=== PATIENT | female | born 1940 | race Caucasian/White ===

== ENCOUNTER 2019-09-24 15:35 | Inpatient (IN) | payer MEDICARE ==
[~2019-09-24] VITALS: Ht 157.5 cm; Wt 61.9 kg
[~2019-09-24 15:35] MED LIST: ADULT LOW DOSE81 MG PO; COREG6.25 MG PO; LISINOPRIL5 MG PO; NORVASC5 MG PO; ONDANSETRON HCL4 M2 PO; PRINIVIL5 MG PO; ZOCOR 20 MG TAB20 M1 PO
[2019-09-24 15:37] VITALS: BP 212/83
[2019-09-24 15:58] LABS: ABSOLUTE LYMPHOCYTES 0.8 thou/uL (0.8-5.3); ABSOLUTE MONOCYTES 0.8 thou/uL (0.0-1.2); ABSOLUTE NEUTROPHILS 3.9 thou/uL (1.6-8.1); BASOPHILS 0.5 %; EOSINOPHILS 0.1 %; HEMATOCRIT 42.4 % (37.0-47.0); HEMOGLOBIN 14.4 gm/dL (12.0-15.0); LYMPHOCYTES 14.8 %; MCH 31.9 pg (26.0-34.0); MCV 93.7 fL (80.0-100.0); MONOCYTES 14.4 %; MPV 7.8 fl. (7.2-11.1); NUCLEATED RBCS 0 /100WBC; PLATELET COUNT* 174 thou/uL (150-400); POLYS 70.2 %; RBC 4.52 mil/uL (4.20-5.00); RDW-CV 13.9 % (10.5-14.5); WBC 5.6 thou/uL (4.0-11.0)
[2019-09-24 16:07] LABS: APTT 29.1 Seconds (25.0-31.3)
[2019-09-24 16:16] LABS: CALCIUM 8.8 mg/dL (8.5-10.1); CREATININE 0.9 mg/dL (0.6-1.3); POTASSIUM 3.2 mmol/L (3.5-5.1)
[2019-09-24 16:21] LABS: ALBUMIN 3.5 g/dL (3.4-5.0); TOTAL BILIRUBIN 0.6 mg/dL (<0.1-1.0); TOTAL PROTEIN 7.3 g/dL (6.4-8.2)
--- NOTE | 2019-09-24 17:03 | NUR ---
REPORT GIVEN TO CARMEN SANTANA WHO IS TO ASSUME PT CARE INPATIENT NURSE.
[2019-09-24 17:04] VITALS: BP 191/67
[2019-09-24 18:20] VITALS: BP 183/84
[2019-09-24] MEDS ORDERED: CARVEDILOL25 MG PO (18:42)
[2019-09-24] MEDS ORDERED: MICROZIDE12.5 MG PO (18:45)
[2019-09-24] MEDS ORDERED: MINOXIDIL2.5 MG PO (18:45)
[2019-09-24] MEDS ORDERED: PRILOSEC OTC20 MG PO (18:46)
[2019-09-24] MEDS ORDERED: HYDRALAZINE 5050 MG PO (18:46)
[2019-09-24] MEDS ORDERED: POTASSIUM99 M1 PO (18:48)
[2019-09-24] MEDS ORDERED: FISH OIL 1,001000 M3 PO (18:48)
[2019-09-24 19:50] VITALS: BP 201/86
[2019-09-24 22:00] VITALS: BP 164/86
[2019-09-25] VITALS (7 sets, daily range): BP systolic 109–176; BP diastolic 51–80
[2019-09-25 04:36] LABS: HEMATOCRIT 42.2 % (37.0-47.0); HEMOGLOBIN 13.9 gm/dL (12.0-15.0); MCHC 32.9 g/dL (28.0-37.0); MCV 94.2 fL (80.0-100.0); MPV 8.1 fl. (7.2-11.1); RBC 4.48 mil/uL (4.20-5.00); RDW-CV 14.2 % (10.5-14.5); WBC 2.7 thou/uL (4.0-11.0)
[2019-09-25 04:56] LABS: CALCIUM 8.5 mg/dL (8.5-10.1); CREATININE 0.8 mg/dL (0.6-1.3); MAGNESIUM 1.8 mg/dL (1.8-2.4); POTASSIUM 3.2 mmol/L (3.5-5.1)
--- NOTE | 2019-09-25 07:55 | NUR ---
PT CARE ASSUMED AT 1930. SAT MAINTAINED IN O2. ALERT AND ORIENTED X4 BUT FORFETFUL AT TIMES. DENIES PAIN. C/O NAUSEA, MEDICATION GIVEN PER EMAR. CALL LIGHT WITHIN REACH AND BED IN LOW POSITION. HOURLY ROUNDING DONE FOR PT SAFETY.
--- NOTE | 2019-09-25 10:15 | EKG ---
[place] [address] ELECTROCARDIOGRAM REPORT Name: Gabriele DE LA ROSA Room: [address] ADM IN M.R.#: [id number] Admission: 09/24/19 Attend Phys: Harshil Chen MD Discharge: Date of : 36 Report #: [id number] THIS REPORT FOR: //name// [facility] ED Test Date: 2019-09-24 Test Time: 16:19:12 Pat Name: Gabriele DE LA ROSA Department: Room: [facility] Gender: F Corrections Officer: : 1940 Requested By: Joselito Stokes Order Number: [id number] MD: Denny Jacobson Measurements Intervals [place] Rate: 77 P: 82 LA: 182 QRS: 65 QRSD: 106 T: 58 QT: 399 QTc: 452 Interpretive Statements Sinus rhythm Consider right atrial enlargement Anteroseptal infarct, age indeterminate Artifact in lead(s) V1,V3 and baseline wander in lead(s) V3 Compared to ECG 03/29/2011 12:29:43 Left ventricular hypertrophy no longer present T-wave abnormality no longer present Possible ischemia no longer present Myocardial infarct finding still present Electronically Signed On 09-25-2019 10:14:54 CHEMICAL PUMPER by Denny Jacobson [email or web address] <ELECTRONICALLY SIGNED> By: Denny Jacobson MD, [facility] 09/25/19 1014 1619 1619 Denny Jacobson MD, [facility] /EPI
--- NOTE | 2019-09-25 18:22 | NUR ---
PT. C/O MORE THIS EVENING ABOUT NAUSEA, SMALL AMOUNT OF BILE EMESIS PRIOR TO ADMINISTRATION OF ZOFRAN. PT. CONTINUES TO SOUND NASAL/CONGEST WITH LOOSE COUGH AND GENERALLY APPEARS LIKE SHE DOES NOT FEEL WELL. 2L NC REMAINS IN PLACE CURRENTLY, WITH PT. REMOVING INTERMIIT, PT. DOES DESTAT WITH ACTIVITY. PT. ENCOURAGED TO WALK TO HELP WITH BOWEL. BP UP THIS EVENING, PM DOSE OF COREG GIVEN, WILL RECHECK. PT. DAUGHTER AT BEDSIDE.
[2019-09-26] VITALS: BP 193/76
[2019-09-26 04:00] VITALS: BP 170/70
--- NOTE | 2019-09-26 07:05 | NUR ---
VSS. SEE MAR. SEE CHARTING. FALL PRECAUTIONS IN PLACE. PROGRESSING TOWARDS GOALS. HOURLY ROUNDING FOR SAFETY.
[2019-09-26 08:00] VITALS: BP 171/67
[2019-09-26 15:29] LABS: URINE BILIRUBIN NEGATIVE (Negative); URINE BLOOD NEGATIVE (Negative); URINE CLARITY CLEAR; URINE COLOR YELLOW; URINE GLUCOSE-RANDOM NEGATIVE (Negative); URINE KETONES NEGATIVE (Negative); URINE LEUKOCYTES-REFLEX NEGATIVE (Negative); URINE NITRITE-REFLEX NEGATIVE (Negative); URINE PROTEIN NEGATIVE (Negative); URINE UROBILINOGEN 0.2 E.U./dl (0.2-1.0)
[2019-09-26 16:12] VITALS: BP 129/53
[2019-09-26 17:35] VITALS: BP 127/65
--- NOTE | 2019-09-26 18:41 | NUR ---
assumed pt care at 0730, full assesment done as charted. pt a/o x4, c/o n/v this am, meds given per dec. pt has non productive cough, very wet, course lungs this am. notified, new orders recieved. pt up with assist, ambulated several times in the [place] with daughter, steady with assistance. 2 large bms today, voiding per bsc. new iv started in left hand. o2 sat in the 80's, pt on 2l. uses call light appropriatly. pt transfered to room 107 at approx 1840, dtr called with updated.
--- NOTE | 2019-09-26 18:59 | NUR ---
PT AWAKE/ALERT. REPORT FROM BLOOD BANK LABORATORY TECHNOLOGIST APPROX 1814. PT ARRIVED TO UNIT 184 IN WITH PERSONAL BELONGINGS. HOME MEDICATION BROUGHT DOWN WITH PT. PT REPORTED TO TRANSFER SBA, WITH STEADY GAIT. PT WEARS 2L O2 PRN. LG BM X2 REPORTED BY BLOOD BANK LABORATORY TECHNOLOGIST. PT HAS 20G TO L HAND, SALINE LOCKED. PT SETTLED IN ROOM WITH CALL LIGHT IN REACH.
[2019-09-26 20:00] VITALS: BP 170/62
[2019-09-27 08:00] VITALS: BP 188/74
[2019-09-27 11:30] VITALS: BP 118/47
[2019-09-27 11:51] VITALS: BP 118/47
[2019-09-27] MEDS ORDERED: DULCOLAX10 MG RECTAL (12:26)
[2019-09-27] MEDS ORDERED: MIRALAX17 GM PO (12:26)
[2019-09-27] MEDS ORDERED: DOK PLUS TABLE1 EACH PO (12:26)
--- NOTE | 2019-09-27 16:08 | NUR ---
PATIENT QUALIFIED FOR OXYGEN, 02 2L NC. [facility] DELIVERED OXYGEN TANK AND WILL DELIVER CONCENTRATOR TO HOME. IV DC'D. PATIENT AMBULATED WITH SBA. PATIENT HAVING LARGE BOWEL MOVEMENTS. VERBALIZES UNDERSTANDING OF PAPERWORK AND SCRIPTS SENT OVER TO PHARMACY BY PHYSICIAN. PATIENT TAKEN OUT VIA WHEELCHAIR WITH ALL BELONGINGS AND OXYGEN.
--- NOTE | 2019-09-29 10:37 | EKG ---
[place] [address] ELECTROCARDIOGRAM REPORT Name: Gabriele DE LA ROSA Room: [address] DIS IN M.R.#: [id number] Admission: 09/24/19 Attend Phys: Harshil Chen MD Discharge: 09/27/19 Date of : 36 Report #: [id number] THIS REPORT FOR: //name// [facility] ED Test Date: 2019-09-24 Test Time: 16:21:59 Pat Name: Gabriele DE LA ROSA Department: Room: [address] Gender: F Store Consultant: : 1940 Requested By: Joselito Stokes Order Number: [id number] MD: Scott Segura Measurements Intervals [place] Rate: 80 P: 71 MD: 180 QRS: 65 QRSD: 97 T: 58 QT: 393 QTc: 454 Interpretive Statements Sinus rhythm Ventricular premature complex Anterior infarct, old Borderline ST depression, lateral leads Compared to ECG 09/24/2019 16:19:12 Ventricular premature complex(es) now present ST (T wave) deviation now present Myocardial infarct finding still present Electronically Signed On 09-29-2019 10:36:52 TURKEY PINNER by Scott Segura [email or web address] <ELECTRONICALLY SIGNED> By: Scott Segura MD, FACC 09/29/19 1036 1621 1621 Scott Segura MD, FACC /EPI
== END 2019-09-27 16:13 | disposition home or self-care (01) | DRG 391 ==
LOC: M.ERS 15:35 → M.TBA-ER 16:26 → M.2W 17:53 → M.ORTHSURG 09-26 18:45
PROVIDERS: Family Medicine; Internal Medicine; ADMIT Internal Medicine
DX: A08.4 Viral intestinal infection, unspecified (principal); J80 Acute respiratory distress syndrome; I10 Essential (primary) hypertension; E78.5 Hyperlipidemia, unspecified; E86.0 Dehydration; K21.9 Gastro-esophageal reflux disease without esophagitis; K59.00 Constipation, unspecified; G89.29 Other chronic pain; M54.9 Dorsalgia, unspecified; I25.10 Atherosclerotic heart disease of native coronary artery without angina pectoris; Z90.710 Acquired absence of both cervix and uterus; Z86.73 Personal history of transient ischemic attack (TIA), and cerebral infarction without residual deficits; I25.2 Old myocardial infarction; Z90.49 Acquired absence of other specified parts of digestive tract; Z88.2 Allergy status to sulfonamides; Z91.041 Radiographic dye allergy status; Z87.891 Personal history of nicotine dependence; Z79.82 Long term (current) use of aspirin; Z79.899 Other long term (current) drug therapy

== ENCOUNTER 2021-04-04 12:03 | Inpatient (IN) | payer MEDICARE ==
[~2021-04-04] VITALS: Ht 160 cm; Wt 70.8 kg
[~2021-04-04 12:03] MED LIST changes: +CARVEDILOL25 MG PO; +DOK PLUS TABLE1 EACH PO; +DULCOLAX10 MG RECTAL; +FISH OIL 1,001000 M3 PO; +HYDRALAZINE 5050 MG PO; +MICROZIDE12.5 MG PO; +MINOXIDIL2.5 MG PO; +MIRALAX17 GM PO; +POTASSIUM99 M1 PO; +PRILOSEC OTC20 MG PO
[2021-04-04 12:09] VITALS: BP 197/79
[2021-04-04 12:19] LABS: ABSOLUTE BASOPHILS 0.1 thou/uL (0.0-0.2); ABSOLUTE EOSINOPHILS 0.1 thou/uL (0.0-0.7); ABSOLUTE LYMPHOCYTES 1.1 thou/uL (0.8-5.3); ABSOLUTE MONOCYTES 0.7 thou/uL (0.0-1.2); ABSOLUTE NEUTROPHILS 5.4 thou/uL (1.6-8.1); BASOPHILS 0.9 %; EOSINOPHILS 1.7 %; HEMOGLOBIN 13.2 gm/dL (12.0-15.0); LYMPHOCYTES 14.4 %; MCH 32.7 pg (26.0-34.0); MCHC 33.9 g/dL (28.0-37.0); MCV 96.6 fL (80.0-100.0); MONOCYTES 9.9 %; MPV 7.1 fl. (7.2-11.1); NUCLEATED RBCS 0 /100WBC; PLATELET COUNT* 214 thou/uL (150-400); POLYS 73.1 %; RBC 4.04 mil/uL (4.20-5.00); RDW-CV 14.1 % (10.5-14.5); WBC 7.3 thou/uL (4.0-11.0)
[2021-04-04 12:28] LABS: CALCIUM 9.2 mg/dL (8.5-10.1)
[2021-04-04 12:32] LABS: ALBUMIN 3.5 g/dL (3.4-5.0); TOTAL BILIRUBIN 0.3 mg/dL (<0.1-1.0)
[2021-04-04 13:00] LABS: URINE BILIRUBIN NEGATIVE (Negative); URINE BLOOD NEGATIVE (Negative); URINE CLARITY CLEAR; URINE COLOR YELLOW; URINE GLUCOSE-RANDOM NEGATIVE (Negative); URINE KETONES NEGATIVE (Negative); URINE LEUKOCYTES-REFLEX 1+ (Negative); URINE NITRITE-REFLEX POSITIVE (Negative); URINE PROTEIN NEGATIVE (Negative); URINE UROBILINOGEN 0.2 E.U./dl (0.2-1.0)
[2021-04-04 13:06] LABS: SQUAMOUS 0-3 Few /LPF (0-3); WBC CLUMPS Few (None Seen)
[2021-04-04 13:07] LABS: BACTERIA-REFLEX >30 Many /HPF (None Seen); URINE RBC None Seen /HPF (0-2); URINE WBC-REFLEX >25 Many /HPF (0-5)
[2021-04-04 13:08] LABS: CRYSTALS None Seen /LPF (None Seen); HYALINE CASTS 0-3 Few /LPF (None Seen); MUCUS None Seen strn/LPF (None Seen)
--- NOTE | 2021-04-04 15:52 | EKG ---
[place] [address] ELECTROCARDIOGRAM REPORT Name: Gabriele DE LA ROSA Room: [place] [address] ADM IN R.#: [id number] Admission: 04/04/21 Attend Phys: Sixto Elam Discharge: Date of : 36 Date of Service: 04/04/21 1234 Report #: [id number] THIS REPORT FOR: //name// [facility] ED Test Date: 2021-04-04 Test Time: 12:34:01 Pat Name: Gabriele DE LA ROSA Department: Room: [facility] Gender: F Dump Truck Operator: CANDACE : 1940 Requested By: Joselito Stokes Order Number: [id number] MD: Abilio Coffey Measurements Intervals [place] Rate: 61 P: [place]: QRS: 38 QRSD: 102 T: 54 QT: 430 QTc: 433 Interpretive Statements Sinus rhythm Anteroseptal infarct, age indeterminate Baseline wander in lead(s) I,II,III,aVL,aVF,V4 Compared to ECG 09/24/2019 16:21:59 Ventricular premature complex(es) no longer present ST (T wave) deviation no longer present Myocardial infarct finding still present Electronically Signed On 04-04-2021 15:52:10 CDT by Abilio Coffey [email or web address] <ELECTRONICALLY SIGNED> By: Abilio Coffey MD, [facility] 04/04/21 1552 1234 1234 Abilio Coffey MD, [facility] /EPI
[2021-04-04 16:27] VITALS: BP 194/67
[2021-04-04 16:50] VITALS: BP 135/75
[2021-04-04 20:02] VITALS: BP 179/66
[2021-04-05 04:15] VITALS: BP 171/59
[2021-04-05 04:41] LABS: CALCIUM 8.8 mg/dL (8.5-10.1); CREATININE 0.9 mg/dL (0.6-1.3); POTASSIUM 3.1 mmol/L (3.5-5.1)
[2021-04-05 04:48] LABS: HEMATOCRIT 34.4 % (37.0-47.0); HEMOGLOBIN 11.8 gm/dL (12.0-15.0); MCH 32.8 pg (26.0-34.0); MCHC 34.2 g/dL (28.0-37.0); MCV 95.9 fL (80.0-100.0); MPV 7.7 fl. (7.2-11.1); RBC 3.59 mil/uL (4.20-5.00); RDW-CV 13.6 % (10.5-14.5); WBC 6.2 thou/uL (4.0-11.0)
[2021-04-05 08:00] VITALS: BP 169/66
[2021-04-05 20:26] VITALS: BP 154/62
[2021-04-06] VITALS (7 sets, daily range): BP systolic 127–157; BP diastolic 43–57
[2021-04-06 05:03] LABS: HEMATOCRIT 29.8 % (37.0-47.0); HEMOGLOBIN 10.3 gm/dL (12.0-15.0)
[2021-04-07 04:45] LABS: HEMATOCRIT 29.4 % (37.0-47.0); HEMOGLOBIN 10.1 gm/dL (12.0-15.0); MCH 32.8 pg (26.0-34.0); MCHC 34.3 g/dL (28.0-37.0); MCV 95.7 fL (80.0-100.0); MPV 7.7 fl. (7.2-11.1); RBC 3.08 mil/uL (4.20-5.00); RDW-CV 13.4 % (10.5-14.5); WBC 6.6 thou/uL (4.0-11.0)
[2021-04-07 04:58] LABS: CALCIUM 9.3 mg/dL (8.5-10.1); CREATININE 0.9 mg/dL (0.6-1.3); POTASSIUM 3.6 mmol/L (3.5-5.1)
[2021-04-07 08:15] VITALS: BP 156/53
[2021-04-07] MEDS ORDERED: HYDROCODON-ACE1 EAC7 PO (09:09)
[2021-04-07] MEDS ORDERED: LEVOFLOXACIN500 MG PO (09:09)
[2021-04-07] MEDS ORDERED: HYDRALAZINE 2525 MG PO (09:09)
[2021-04-07] MEDS ORDERED: VITAMIN D325 MC1 PO (09:09)
[2021-04-07] MEDS ORDERED: TYLENOL325 MG PO (09:09)
[2021-04-07] MEDS ORDERED: CALCIUM 600 +1 EAC1 PO (09:09)
[2021-04-07] MEDS ORDERED: HYDROCHLOROTHIA25 M1 PO (09:09)
[2021-04-07] MEDS ORDERED: PHENERGAN 25 MG25 M1 PO (09:09)
[2021-04-07 09:13] VITALS: BP 156/53
--- NOTE | 2021-04-07 16:19 | OP ---
[address] [address] OPERATIVE REPORT Name: Gabriele DE LA ROSA Room: [address]#: [id number] Admission: 04/04/21 Attend Phys: Jenny Alvarez Discharge: 04/07/21 Date of : 36 Report #: [id number] THIS REPORT FOR: cc: Harshil Mccurdy James E DO Orth,Claudio LOVE ~ DOC #: [id number] Edgar Drew DO DATE OF SURGERY: 04/05/2021 PREOPERATIVE DIAGNOSIS: Left closed, osteoporotic, displaced and comminuted tibia and fibula shaft fractures. POSTOPERATIVE DIAGNOSIS: Left closed, displaced, osteoporotic and comminuted tibia and fibula shaft fractures. PROCEDURE PERFORMED: Closed reduction and intramedullary nail, left tibia. ORTHOPEDIC IMPLANTS: Adams 10 x 315 mm nail with 2 proximal and 3 distal interlock screws. Of note, 2 distal interlock screws were the advanced locking screws. SURGEON: Claudio Kim DO. ASSISTANTS: Edgar Drew DO and ____, DO. ANESTHESIA: Spinal. ESTIMATED BLOOD LOSS: 50 mL. DRAINS: None. SPECIMENS: None. COMPLICATIONS: None. CONDITION OF THE PATIENT: Stable. DISPOSITION: PACU, then return to floor. ANTIBIOTICS: Ancef 2 g IV piggyback prior to the procedure. INDICATIONS FOR PROCEDURE: The patient is a pleasant 80-year-old female who had a fall yesterday, sustaining a left lower leg injury. She was evaluated in the Emergency Department, where x-rays confirmed the tibia and fibula shaft fractures. She was initially closed reduced and placed in a splint and then, [place] [id number] OPERATIVE REPORT Name: Gabriele DE LA ROSA Room: [address]#: [id number] Admission: 04/04/21 Attend Phys: Jenny Alvarez Discharge: 04/07/21 Date of : 36 Report #: [id number] she was cleared for surgery overnight. Prior to surgery, the patient was informed of all the risks, benefits, indications, complications associated with this procedure including but not limited to infection, wound healing complications, neurovascular injury, malunion, nonunion, rotation abnormalities, continued pain, posttraumatic arthritis, thromboembolic events, end-organ damage, , complication with anesthesia and any other possibilities. The patient demonstrated good understanding, wanted to proceed with surgery and consent was signed. FINDINGS: Fluoroscopic imaging demonstrated a comminuted, displaced tibia and fibula shaft fractures that were successfully closed reduced and treated with intramedullary nail. Bone quality was severely osteoporotic. DESCRIPTION OF PROCEDURE: I met with the patient in the preoperative suite. The correct left lower extremity was marked. The patient was taken to the operating room and given spinal anesthetic. She was then positioned supine on a Praveen flattop radio-translucent table. Left lower extremity was then sterilely prepped and draped in standard fashion with a bump under the hip and the bone foam. At this point, a surgical timeout was completed, indicating the correct patient, operative site, and procedure to be performed. All in the room were in agreement and we elected to proceed. To start the procedure, utilized fluoroscopy to confirm closed reduction of the fracture and then a percutaneous Oclon clamp was utilized to hold the closed reduction. With adequate fracture reduction, turned our attention to our starting point for the suprapatellar nail. I incised the skin at the superior pole of the patella and proximally approximately 3-4 cm and took dissection down to the level of the quad tendon. Electrocautery was utilized to assist with good hemostasis. The quad tendon was split midline and entered the knee. At this point, the patellofemoral joint was palpated and there was noted to be grade 2 chondromalacia present. The guide sleeve was passed through the patellofemoral joint with adequate contact on the proximal tibia. The starting guidewire was then inserted and confirmed adequate starting point with fluoroscopy. With the guidewire in place, the opening reamer was utilized to follow the guidewire. Next, the ball-tipped guidewire was passed down the intramedullary canal, past the fracture site to the ankle. Confirmed adequate length utilizing fluoroscopy and a 350 mm nail was selected. At this point, began reaming starting with a 9 mm reamer and reamed sequentially up to an 11.5 mm reamer for a final 10 mm nail. The final 10 x 315 mm nail was then opened and passed on the back table and assembled to the targeting arm and confirmed that the proximal interlocks were working through the targeting sleeve. Nail was passed down the tibia over the guidewire and confirmed adequate nail depth with fluoroscopy. At this point, with good fracture reduction and nail in the appropriate position, verified that our rotation was correct and ____ the proximal aspect of the nail with interlocks in a standard form utilizing the double sleeve. Skin incised, [address] [address] OPERATIVE REPORT Name: Gabriele DE LA ROSA Room: [address] IN [place]#: [id number] Admission: 04/04/21 Attend Phys: Jenny Alvarez Discharge: 04/07/21 Date of : 36 Report #: [id number] carried down to bone, drilled and measured and placed 2 oblique proximal interlock screws. We then turned our attention to the distal interlock screws and performed perfect [place] technique for the 2 medial to lateral interlock options. Due to the severe osteoporosis and the distal one-third tibial shaft fracture, I elected to proceed with the advanced locking screws distally. The skin was incised, dissection was taken down to level of bone and these were drilled, measured, and the 2 interlock screws were placed in a standard form. We turned our attention to the third distal interlock screw, which was an anterior to posterior screw. A perfect [place] technique was utilized. Skin was incised. Blunt dissection was taken down to the level of the bone. Care was taken to protect the neurovascular bundle in this plane and the perfect [place] technique was utilized to drill and place this anterior to posterior screw, which had good purchase. The wounds were all thoroughly irrigated. The targeting arm was removed. Final fluoroscopic images were taken. There was good hemostasis. The quad tendon was closed with a #1 Vicryl in a [id number] fashion. Subcutaneous tissue was closed with a 2-0 Monocryl and 2-0 nylon was utilized on the skin as well as skin leilani. Needle and sponge counts were correct x2 at the end of the procedure. The patient was taken from the operating room to PACU in stable condition. ATTESTATION: Dr. Kim was present throughout the entirety of the case. POSTOPERATIVE CARE: We will initiate mechanical and chemical DVT prophylaxis with aspirin if okay with the primary service. Weightbear as tolerated on left lower extremity and due to coexisting metatarsal base fractures, we will have the patient ambulate with a postop shoe. Physical therapy, occupational therapy and safe discharge planning will be initiated. DO THEORN Hobson/[place]ESH[place]/[facility] <ELECTRONICALLY SIGNED> By: Claudio Kim DO 04/07/21 1619 1209 [email or web address] Kim DO /nt
== END 2021-04-07 13:55 | DRG 493 ==
LOC: M.ERS 12:03 → M.TBA-ER 13:34 → M.ORTHSURG 13:34
PROVIDERS: Family Medicine; Internal Medicine; Orthopaedic Surgery; ADMIT Internal Medicine; ATTEND Internal Medicine
PROC: 0QSH04Z Reposition Left Tibia with Internal Fixation Device, Open Approach (ICD-10-PCS; principal; 2021-04-05)
DX: S82.302A Unspecified fracture of lower end of left tibia, initial encounter for closed fracture (principal); E87.1 Hypo-osmolality and hyponatremia; N39.0 Urinary tract infection, site not specified; M80.062A Age-related osteoporosis with current pathological fracture, left lower leg, initial encounter for fracture; S82.462A Displaced segmental fracture of shaft of left fibula, initial encounter for closed fracture; S92.335A Nondisplaced fracture of third metatarsal bone, left foot, initial encounter for closed fracture; S92.325A Nondisplaced fracture of second metatarsal bone, left foot, initial encounter for closed fracture; I10 Essential (primary) hypertension; E78.5 Hyperlipidemia, unspecified; Z20.822 Contact with and (suspected) exposure to COVID-19; I70.1 Atherosclerosis of renal artery; I25.10 Atherosclerotic heart disease of native coronary artery without angina pectoris; Z90.710 Acquired absence of both cervix and uterus; Z86.73 Personal history of transient ischemic attack (TIA), and cerebral infarction without residual deficits; Z90.49 Acquired absence of other specified parts of digestive tract; I25.2 Old myocardial infarction; Z88.2 Allergy status to sulfonamides; Z91.041 Radiographic dye allergy status; Z95.5 Presence of coronary angioplasty implant and graft; W18.39XA Other fall on same level, initial encounter; Y93.89 Activity, other specified; Y92.89 Other specified places as the place of occurrence of the external cause; Y99.8 Other external cause status

== ENCOUNTER 2021-05-29 14:35 | Emergency (ER) | payer MEDICARE ==
[~2021-05-29] VITALS: Ht 157.5 cm; Wt 61.2 kg
[~2021-05-29 14:35] MED LIST changes: +CALCIUM 600 +1 EAC1 PO; +HYDRALAZINE 2525 MG PO; +HYDROCHLOROTHIA25 M1 PO; +HYDROCODON-ACE1 EAC7 PO; +LEVOFLOXACIN500 MG PO; +PHENERGAN 25 MG25 M1 PO; +TYLENOL325 MG PO; +VITAMIN D325 MC1 PO
[2021-05-29] MEDS ORDERED: ASA81BEC PO (14:46)
[2021-05-29] MEDS ORDERED: FLORANEX TABLE1 EACH PO (14:47)
[2021-05-29] MEDS ORDERED: LINEZOLID600 MG PO (14:49)
[2021-05-29] MEDS ORDERED: MINOXIDIL2.5 MG PO (14:49)
[2021-05-29 16:23] LABS: ABSOLUTE BASOPHILS 0.1 thou/uL (0.0-0.2); ABSOLUTE EOSINOPHILS 0.2 thou/uL (0.0-0.7); ABSOLUTE LYMPHOCYTES 0.9 thou/uL (0.8-5.3); ABSOLUTE MONOCYTES 1.2 thou/uL (0.0-1.2); ABSOLUTE NEUTROPHILS 12.6 thou/uL (1.6-8.1); BASOPHILS 0.6 %; EOSINOPHILS 1.2 %; HEMATOCRIT 34.5 % (37.0-47.0); HEMOGLOBIN 11.5 gm/dL (12.0-15.0); LYMPHOCYTES 6.1 %; MCH 29.1 pg (26.0-34.0); MCHC 33.5 g/dL (28.0-37.0); MCV 86.8 fL (80.0-100.0); MONOCYTES 7.9 %; MPV 7.7 fl. (7.2-11.1); NUCLEATED RBCS 1 /100WBC; POLYS 84.2 %; RBC 3.97 mil/uL (4.20-5.00); RDW-CV 17.1 % (10.5-14.5); WBC 14.9 thou/uL (4.0-11.0)
[2021-05-29 16:25] LABS: CALCIUM 8.4 mg/dL (8.5-10.1); CREATININE 0.9 mg/dL (0.6-1.3); POTASSIUM 3.7 mmol/L (3.5-5.1)
[2021-05-29 16:30] LABS: ALBUMIN 2.1 g/dL (3.4-5.0); MAGNESIUM 1.5 mg/dL (1.8-2.4); TOTAL BILIRUBIN 0.7 mg/dL (<0.1-1.0); TOTAL PROTEIN 5.6 g/dL (6.4-8.2)
[2021-05-29 17:01] LABS: PLATELET ESTIMATE ADEQUATE
[2021-05-29 17:02] LABS: PLATELET COUNT* 307 thou/uL (150-400)
[2021-05-29 17:57] LABS: URINE BILIRUBIN NEGATIVE (Negative); URINE BLOOD NEGATIVE (Negative); URINE CLARITY CLEAR; URINE COLOR YELLOW; URINE GLUCOSE-RANDOM NEGATIVE (Negative); URINE KETONES NEGATIVE (Negative); URINE LEUKOCYTES-REFLEX TRACE (Negative); URINE NITRITE-REFLEX NEGATIVE (Negative); URINE PROTEIN NEGATIVE (Negative); URINE UROBILINOGEN 0.2 E.U./dl (0.2-1.0)
[2021-05-29 18:08] LABS: MUCUS None Seen strn/LPF (None Seen); SQUAMOUS 0-3 Few /LPF (0-3)
[2021-05-29 18:09] LABS: BACTERIA-REFLEX None Seen /HPF (None Seen); CASTS None Seen /LPF (None Seen); CRYSTALS None Seen /LPF (None Seen); URINE RBC None Seen /HPF (0-2); URINE WBC-REFLEX 0-5 Rare /HPF (0-5)
[2021-05-29] MEDS ORDERED: ZOFRAN ODT4 MG PO (18:41)
[2021-05-29 19:06] VITALS: BP 155/60
== END 2021-05-29 19:09 ==
LOC: M.ERS 14:35
PROVIDERS: Nurse Practitioner Family
DX: R53.1 Weakness (principal); Z20.822 Contact with and (suspected) exposure to COVID-19; R11.2 Nausea with vomiting, unspecified; E78.5 Hyperlipidemia, unspecified; I10 Essential (primary) hypertension; Z86.19 Personal history of other infectious and parasitic diseases; Z90.710 Acquired absence of both cervix and uterus; Z98.890 Other specified postprocedural states; Z86.73 Personal history of transient ischemic attack (TIA), and cerebral infarction without residual deficits; Z85.828 Personal history of other malignant neoplasm of skin; Z88.2 Allergy status to sulfonamides